=== PATIENT | male | born 1960 | race Caucasian/White ===

== ENCOUNTER 2020-11-08 16:42 | Outpatient (CLI) | payer OTHER, SELFPAY | END 2020-11-08 16:43 | disposition home or self-care (01) | LOC: ANHCOVIDVC 16:42 | DX: Z23 Encounter for immunization (principal) | CPT/HCPCS: 0001A; 91300 ==

== ENCOUNTER 2020-11-29 16:17 | Outpatient (CLI) | payer OTHER, SELFPAY | END 2020-11-29 16:18 | disposition home or self-care (01) | LOC: ANHCOVIDVC 16:17 | DX: Z23 Encounter for immunization (principal) | CPT/HCPCS: 0002A; 91300 ==